=== PATIENT | female | born 1960 | race Caucasian/White ===

== ENCOUNTER 2024-05-15 06:34 | Day surgery (SDC) | payer OTHER ==
[~2024-05-15] VITALS: Ht 157.5 cm; Wt 115.0 kg
[~2024-05-15 06:34] MED LIST: LEVO25TA9 PO; MONT-40 PO; SODIUM CHLORIDE 0.9% 1,000 ML ONE
[2024-05-15] MEDS ORDERED: ALBUTEROL SULFATE 2.5 MG/0.5 ML NEB SOLUTION NEB ONE (06:35)
[2024-05-15] MEDS ORDERED: LIDOCAINE 4% 50 ML SOLUTION TP ONE (06:35)
[2024-05-15] MEDS ORDERED: BENZOCAINE 20% 50 MCG/SPRAY 57 GM TP ONE (06:35)
[2024-05-15] MEDS ORDERED: LIDOCAINE 2% 11 ML JELLY TP ONE (06:35)
[2024-05-15] MEDS ORDERED: LISI5TAB21 PO (07:43)
[2024-05-15] MEDS ORDERED: ASPI-1450 PO (07:43)
[2024-05-15] MEDS ORDERED: IPRA0.2S49 NEB (07:43)
[2024-05-15] MEDS ORDERED: VENL-68 PO (07:43)
[2024-05-15] MEDS ORDERED: ALBU18HF12 IH (07:43)
[2024-05-15] MEDS ORDERED: OMEP20CA12 PO (07:43)
[2024-05-15] MEDS ORDERED: SOLI5 PO (07:43)
[2024-05-15] MEDS ORDERED: PRED5TAB PO (07:43)
[2024-05-15] MEDS ORDERED: FLUT12AE3 IH (07:43)
[2024-05-15] MEDS ORDERED: LORA10TA7 PO (07:43)
[2024-05-15] MEDS ORDERED: AZEL137S8 NASAL (07:43)
[2024-05-15] MEDS ORDERED: TIOT4MIS2 PO (07:43)
[2024-05-15 07:46] LABS: GLUCOMETER DEV NAME(LOC) SDS.; GLUCOSE,POINT OF CARE 111 MG/DL (70-110)
[2024-05-15] MEDS: SODIUM CHLORIDE 0.9% 1,000 ML IV ONE (08:06)
[2024-05-15] MEDS ORDERED: FentaNYL CITRATE PF 100 MCG/2 ML VIAL ONE (08:13)
[2024-05-15] MEDS ORDERED: MIDAZOLAM HCL 2 MG/2 ML VIAL ONE (08:14)
[2024-05-15 09:30] VITALS: PULSE 74; RESP 16; O2SAT 100
[2024-05-15] MEDS ORDERED: MethylPREDNISolone SOD SUCC 125 MG/2 ML VIAL ONE (10:14)
[2024-05-15] MEDS: MethylPREDNISolone SOD SUCC 125 MG/2 ML VIAL IVP ONE (10:16)
== END 2024-05-15 13:55 | disposition home or self-care (01) ==
LOC: SURGERY 06:34
PROVIDERS: ATTEND Internal Medicine Critical Care Medicine
DX: R05.3 Chronic cough (principal); R04.2 Hemoptysis; J38.4 Edema of larynx; B37.0 Candidal stomatitis; Z79.899 Other long term (current) drug therapy; F32.A Depression, unspecified; E11.9 Type 2 diabetes mellitus without complications; Z79.82 Long term (current) use of aspirin; Z90.3 Acquired absence of stomach [part of]; J44.9 Chronic obstructive pulmonary disease, unspecified; Z87.01 Personal history of pneumonia (recurrent); Z98.890 Other specified postprocedural states; Z72.89 Other problems related to lifestyle
CPT/HCPCS: 31623; 82962; 87206; 87101; 87220; 87070; 88108; 31624; 94640; 71045; 87015; J3010; J2250; J2919; J7030; J7613; Z7610